=== PATIENT | male | born 1990 | race Caucasian/White ===

== ENCOUNTER 2024-11-30 18:38 | Emergency (ER) | payer OTHER, SELFPAY ==
--- OUTSIDE RECORDS SUMMARY | 2024-11-30 18:44 | XMS_ITS | Clinical Summary ---
Author Organization [facility] Address [address] [place] [address] Phone Care Team Providers Care Photo Checker Name Role Phone Terri Paez NP Primary Care Provider [phone] Medications FLUoxetine (PROzac) 20 mg capsuleIndicati ons:Severe episode of recurrent major depressive disorder, without psychotic features (HCC) Take 1 capsule (20 mg total) by mouth 1 (one) time each day. 30 capsule 1 Active Additional Information Patient not taking.Reported on 06/14/2024 Active Problems Problem Noted Date Diagnosed Date Severe episode of recurrent major depressive disorder, without psychotic features 01/08/2024 Assessment & Plan (01/09/2024 6:23 AM CDT): Psychological condition is worsening. Regular aerobic exercise. Start fluoxetine 20 mg daily Psychological condition will be reassessed in 4 weeks. [facility] in [place] and psychiatric services available, and he agrees that he will go there to see if he can qualify for an evaluation/ help. Low back pain 11/17/2019 Family History Medical History Relation Comments Cancer Father Heart disease Father Hypertension Father Arthritis Mother Osteoarthritis Mother Stroke Mother Relation Status Comments Father Alive Mother Alive Social History Tobacco Use Types Packs/Day Years Used Date Smoking Tobacco: Never Smokeless Tobacco: Current Comments:Pt currently dips u ses 1 can per day for the past 3 years. Alcohol Use Standard Drinks/Week Comments No 0 (1 standard drink = 0.6 oz pur e alcohol) PHQ-2 Answer Date Recorded PHQ-2 Total Score 4 01/08/2024 Hunger Vital Sign Answer Date Recorded Within the past 12 months, y ou worried that your food would run out before you got the money to buy more. Never true 01/08/20 24 Within the past 12 months, t he food you bought just didn't last and you didn't have money to get more. Never true 01/08/2024 PHQ-9 Answer Date Recorded PHQ-9 Total Score 16 01/08/2024 Interpersonal Safety Answer Date Record ed Safe in Home Yes 03/16/2024 Are you in immediate danger? Not on file Is your partner at the health facility now? Not on file 03/16/2024 Do you want to (or have to) go home with your pa rtner? Not on file 03/16/2024 Do you have someplace safe to go? Not on file 03/16/2024 Have there been threats or d irect abuse of you or your children? No 03/16/2024 When did the abuse occur? Not on file 2023 Do you feel you are still at risk? Not on file 03/16/2024 Are you in contact with your ex-partner or do you share children or custody? Not on file 03/16/2024 Are you afraid your life may be in danger? Not o n file 03/16/2024 Has the violence gotten wors e or is it getting scarier? More often? Not on file 03/16/2024 Has anyone ever choked or tried to choke you? No 03/16/2024 Do you feel you are still at risk for choking? N ot on file 03/16/2024 Are you in contact with ex-p artner who choked or attempted to choke you? or do you share children or custody? Not on file Are you afraid your life may be in danger due to choking? Not on file 03/16/2024 Has the choking gotten worse or is it getting scarier? More often? Not on file 03/16/2024 Has your partner used weapons, alcohol or drugs? Not on file 03/16/2024 Has your partner ever held y ou or your children against your will? Not on file 03/16/2024 Does your partner ever watch you closely, follow you or stalk you? Not on file 03/16/2024 Has your partner ever threat ened to kill you, him/herself or your children? Not on file 03/16/2024 When did the choking or choking attempt occur? N ot on file 03/16/2024 Do you feel you are still at risk for choking? N ot on file 03/16/2024 Safe in Relationship Yes 03/16/2024 Sex and Gender Information Value Date Recorded Sex Assigned at Not on file Legal Sex Male 6:51 PM CDT Gender Identity Not on file Sexual Orientation Not on file Last Filed Vital Signs Vital Sign Reading Time Taken Comments Blood Pressure 137/89 06/14/2024 4:34 PM SIMPLEX PRINTER INSTALLER Pulse 75 06/14/2024 4:34 PM SIMPLEX PRINTER INSTALLER Temperature 37.2 C (98.9 F) 06/14/2024 4:34 PM SIMPLEX PRINTER INSTALLER Respiratory Rate 18 06/14/2024 4:34 PM SIMPLEX PRINTER INSTALLER Oxygen Saturation 95% 06/14/2024 4:34 PM SIMPLEX PRINTER INSTALLER Inhaled Oxygen Concentration - - Weight 74.4 kg (164 lb) 06/14/2024 4:34 PM SIMPLEX PRINTER INSTALLER Height 172.7 cm (5' 8) 06/14/2024 4:34 PM SIMPLEX PRINTER INSTALLER Body Mass Index 24.94 06/14/2024 4:34 PM SIMPLEX PRINTER INSTALLER Plan of Treatment Health Maintenance Due Date Last Done Comments Lipid Panel 1990 Preventative Visit 1990 MMR Vaccines (1 of 1 - Stand denise series) 1991 Varicella Vaccines (1 of 2 - 13+ 2-dose series) 2003 Hepatitis C Screening 2008 DTaP,Tdap,and Td Vaccines (1 - Tdap) 2009 Hepatitis B Vaccines (1 of 3 - 19+ 3-dose series) 2009 COVID-19 Vaccine ( - 2023-2 5 season) 2024 Depression Screening 05/20/2024 Influenza Vaccine (#1) 2024 RSV Vaccine (1 - 1-dose 75+ series) 2065 HIB Vaccines Aged Out No longer eligi ble based on patient's age to complete this topic HPV Vaccines Aged Out No longer eligi ble based on patient's age to complete this topic Hepatitis A Vaccines Aged Out No long er eligible based on patient's age to complete this topic IPV Vaccines Aged Out No longer eligi ble based on patient's age to complete this topic Meningococcal B Vaccine Aged Out No l onger eligible based on patient's age to complete this topic Meningococcal Vaccine Aged Out No dereck zelda eligible based on patient's age to complete this topic Pneumococcal Aged Out No longer eligi ble based on patient's age to complete this topic RSV Aged Out No longer eligi ble based on patient's age to complete this topic Insurance [facility] Proxeon PLUS Care Teams Photo Checker Relationship Specialty Start Date End Date Terri Paez NP [address] [place] [address] [address] [place] [address] PCP - General Family Medicine 01/08/24
--- OUTSIDE RECORDS SUMMARY | 2024-11-30 18:44 | XMS_ITS | Encounter Summary ---
Author Organization [facility] Address [address] [place] [address] Phone Care Team Providers Care Belly Dancer Name Role Phone Terri Paez NP Primary Care Provider [phone] Encounter Details Date Type Department Care Team (Latest Contact Info) Description 07/05/2022 Transcribe Orders [address] [address] Jesus Mcgraw NP [address] [place], [place] [phone] Right hand pain (Primary Dx) Social History Tobacco Use Types Packs/Day Years Used Date Smoking Tobacco: Never Smokeless Tobacco: Never Comments:Pt currently dips u ses 1 can per day for the past 3 years. Alcohol Use Standard Drinks/Week Comments No 0 (1 standard drink = 0.6 oz pur e alcohol) PHQ-2 Answer Date Recorded PHQ-2 Total Score 1 06/21/2022 PHQ-9 Answer Date Recorded PHQ-9 Total Score 1 06/21/2022 Sex and Gender Information Value Date Recorded Sex Assigned at Not on file Legal Sex Male 6:51 PM CDT Gender Identity Not on file Sexual Orientation Not on file COVID-19 Exposure Response Date Recorded In the last 10 days, have yo u been in contact with someone who was confirmed or suspected to have Coronavirus/COVID-19? No / Unsure 07/05/2022 12:37 PM GRAIN MILLER HELPER documented as of this encounter Plan of Treatment Not on file documented as of this encounter Results * X-Ray Hand 3+ Views Right (07/05/2022 12:47 PM GRAIN MILLER HELPER) Anatomical Region Laterality Modality Upper Extremities, Hand Right Digital Radiography 07/05/2022 12:4 5 PM GRAIN MILLER HELPER Impressions 07/05/2022 3:40 PM GRAIN MILLER HELPER 1. No acute osseous abnormality. -Electronically Signed By: Albert Nguyen MD -Electronically Signed On: 07/05/2022 3:40 PM Report Ends Narrative 07/05/2022 3:40 PM GRAIN MILLER HELPER EXAM: XR HAND 3+ VW RIGHT 07/05/2022 12:45 PM HISTORY: Pain in right hand TECHNIQUE: Frontal, lateral and oblique - 3 views of the right hand were obtained. COMPARISON: none FINDINGS: There is no evidence of acute fracture or dislocation. The joint spaces are normal. The alignment is anatomical. No radiopaque foreign bodies. The mineralization is normal. Procedure Note ALBERT Nguyen MD - 07/05/2022 EXAM: XR HAND 3+ VW RIGHT 07/05/2022 12:45 PM HISTORY: Pain in right hand TECHNIQUE: Frontal, lateral and oblique - 3 views of the right hand wereobtained. COMPARISON: none FINDINGS: There is no evidence of acute fracture or dislocation. Thejoint spaces are normal. The alignment is anatomical. No radiopaqueforeign bodies. The mineralization is normal. IMPRESSION: 1. No acute osseous abnormality. -Electronically Signed By: Albert Nguyen MD -Electronically Signed On: 07/05/2022 3:40 PM Report Ends Jesus Mcgraw NP IMG XR PROCEDURES Final Result documented in this encounter Visit Diagnoses Diagnosis Right hand pain- Primary Right hand pain documented in this encounter Additional Health Concerns Infection Onset Date Last Indicated Resolved Time Respiratory Rule-Out 06/14/2024 06/14/2024 025 4:48 PM GRAIN MILLER HELPER documented as of this encounter Care Teams Belly Dancer Relationship Specialty Start Date End Date Terri Paez NP [address] [place] [id number] PCP - General Family Medicine 01/08/24 documented as of this encounter
--- OUTSIDE RECORDS SUMMARY | 2024-11-30 18:44 | XMS_ITS | Continuity of Care Document ---
Author Organization [facility] Address [address] [place] [address] Phone Care Team Providers Care Irrigator Gravity Flow Name Role Phone Kiran Smiley OD Unavailable Unavailable Allergies, Adverse Reactions, Alerts Substance Reaction Status Criticality No Known Drug Allergies Active No I nformation Advance Directives Directive Yes / No Effective Date File Name No Information Encounters Encounter Description Practice Location Reason(s) For Visit Diagnoses Date Provider Providers Copied on Encounter [facility], [address], [place], [place], [id number], [place] tel:[phone] [facility] No Information 5 Baljit Beck. [address] [place], [address], [place]. tel: [phone] [facility], [address], [place], [place], [id number], [place] tel:[phone] [facility] [place] Apr- 3 Baljit Beck. [address] [place], [address], [place]. tel: [phone] Family History Family Member Type Diagnosis Age At Onset No Information Payers Payer name Insurance type Covered alliance party ID Authoriza tion(s) No Information Social History Type Description Quantity Date Captured Comments Sex Male Smoking Status No Information Chief Complaint And Reason For Visit No Information Reason For Referral Reason For Referral No Information History Of Present Illness Encounter Date Complaint History Of Prese nt Illness No Information Functional Status Date Functional Assessmen t No Information Instructions Date Instruction Additional Infor mation No Information Assessments Type Assessment Date No Information Patient Care Teams Name Effective Dates (start - stop) Status Members No Information
--- OUTSIDE RECORDS SUMMARY | 2024-11-30 18:44 | XMS_ITS | Encounter Summary ---
Author Organization [facility] Address [address] [place] [address] Phone Care Team Providers Care Diesel Pile Driver Operator Name Role Phone Aubrie Pope NP Primary Care Provider [phone] Reason for Referral * US Procedures (Emergency) - Closed Specialty Diagnoses / Procedures Referred By Tal gu Referred To Contact Radiology Diagnoses Left groin pain Procedures Ultrasound Groin Aubrie Pope NP [address] [place] [address] Phone: tel: fax: Referral ID Status Reason Start Date Expiration Date Visits Re quested Visits Authorized [id number] Closed 06/21/2022 06/16/2023 1 1 F TECHNICIAN X RAY Reason for Visit * US Procedures (Emergency) - Closed Specialty Diagnoses / Procedures Referred By Tal gu Referred To Contact Radiology Diagnoses Left groin pain Procedures Ultrasound Groin Aubrie Pope NP [address] [place] [address] [address] [place] [address] Phone: tel: fax: Referral ID Status Reason Start Date Expiration Date Visits Re quested Visits Authorized [id number] Closed 06/21/2022 06/16/2023 1 1 Encounter Details Date Type Department Care Team (Latest Contact Info) Description 06/22/2022 2:11 PM CHIEF TECHNICIAN X RAY Hospital Encounter [facility] [address] [place] [address] Left groin pain Social History Tobacco Use Types Packs/Day Years [...] Coronavirus/COVID-19? No / Unsure 07/05/2022 12:37 PM CHIEF TECHNICIAN X RAY documented as of this encounter Plan of Treatment Not on file documented as of this encounter Procedures Procedure Name Priority Date/Time Associated Diagnosis Comments US GROIN STAT 06/22/2022 2:39 PM CHIEF TECHNICIAN X RAY Left groin pain documented in this encounter Results * Ultrasound Groin (06/22/2022 2:39 PM CHIEF TECHNICIAN X RAY) Anatomical Region Laterality Modality Body Ultrasound 06/22/2022 2:30 PM CHIEF TECHNICIAN X RAY Impressions 06/22/2022 2:43 PM CHIEF TECHNICIAN X RAY Mild eventration involving the left inguinal canal without ambar hernia. -Electronically Signed By: Baljit Ye MD -Electronically Signed On: 06/22/2022 2:43 PM Report Ends Narrative 06/22/2022 2:43 PM CHIEF TECHNICIAN X RAY EXAM: US GROIN HISTORY: Left lower quadrant pain . TECHNIQUE: Grayscale images were obtained the left inguinal canal region with and without Valsalva. COMPARISON: None. FINDINGS: There is mild eventration bulging of fat in the left inguinal canal region without ambar hernia. There is no bowel. Procedure Note Baljit Ye MD - 06/22/2022 EXAM: US GROIN HISTORY: Left lower quadrant pain . TECHNIQUE: Grayscale images were obtained the left inguinal canal regionwith and without Valsalva. COMPARISON: None. FINDINGS: There is mild eventration bulging of fat in the left inguinal canal regionwithout ambar hernia. There is no bowel. IMPRESSION: Mild eventration involving the left inguinal canal without ambar hernia. -Electronically Signed By: Baljit Ye MD -Electronically Signed On: 06/22/2022 2:43 PM Report Ends us Aubrie Pope FINISH OPENER IMG US PROCEDURES Final Resul t documented in this encounter Visit Diagnoses Diagnosis Left groin pain documented in this encounter Additional Health Concerns Infection Onset Date Last Indicated Resolved Time Respiratory Rule-Out 06/14/2024 06/14/2024 025 4:48 PM CHIEF TECHNICIAN X RAY documented as of this encounter Care Teams Diesel Pile Driver Operator Relationship Specialty Start Date End Date Aubrie Pope NP [address] [place] [address] PCP - General Nurse Practitioner 06/21/22 01/07/24 documented as of this encounter
--- OUTSIDE RECORDS SUMMARY | 2024-11-30 18:44 | XMS_ITS | Encounter Summary ---
Author Organization [facility] Address [address] [place] [address] Phone Care Team Providers Care Overnight Caregiver Name Role Phone Aubrie Pope NP Primary Care Provider [phone] Encounter Details Date Type Department Care Team (Latest Contact Info) Description 07/05/2022 12:39 PM [facility] Hospital Encounter [address] [address] Right hand pain Social History Tobacco Use Types Packs/Day [...] Coronavirus/COVID-19? No / Unsure 07/05/2022 12:37 PM FREELANCE GRAPHIC DESIGNER documented as of this encounter Plan of Treatment Not on file documented as of this encounter Procedures Procedure Name Priority Date/Time Associated Diagnosis Comments XR HAND 3+ VW RIGHT Routine 07/05/2022 1 2:47 PM FREELANCE GRAPHIC DESIGNER Right hand pain documented in this encounter Results * X-Ray Hand 3+ Views Right (07/05/2022 12:47 PM FREELANCE GRAPHIC DESIGNER) Anatomical Region Laterality Modality Upper Extremities, Hand Right Digital Radiography 07/05/2022 12:4 5 PM FREELANCE GRAPHIC DESIGNER Impressions 07/05/2022 3:40 PM FREELANCE GRAPHIC DESIGNER 1. No acute osseous abnormality. -Electronically Signed By: Albert Nguyen MD -Electronically Signed On: 07/05/2022 3:40 PM Report Ends Narrative 07/05/2022 3:40 PM FREELANCE GRAPHIC DESIGNER EXAM: XR HAND 3+ VW RIGHT 07/05/2022 [...] this encounter Visit Diagnoses Diagnosis Right hand pain documented in this encounter Additional Health Concerns Infection Onset Date Last Indicated Resolved Time Respiratory Rule-Out 06/14/2024 06/14/2024 025 4:48 PM FREELANCE GRAPHIC DESIGNER documented as of this encounter Care Teams Overnight Caregiver Relationship Specialty Start Date End Date Aubrie Pope NP [address] [place] [address] Dr. [address] [place] [address] PCP - General Nurse Practitioner 06/21/22 01/07/24 documented as of this encounter
--- NOTE | 2024-11-30 18:45 | ED_ITS ---
HPI - Skin/Abscess/Foreign Bdy General Chief complaint: Skin/Abscess/Foreign Body Stated complaint: poison sharon Source: patient and RN notes reviewed Mode of arrival: ambulatory Limitations: no limitations History of Present Illness HPI narrative: Patient is a 34-year-old male presents to the [facility] complaints of possible poison sharon. 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 Patient presents with vesicular rash to bilateral arms, hands, and abdomen. States that he has been using calamine lotion. Related Data Home Medications ?Medication ?Instructions ?Recorded ?Confirmed ?Last Taken ?Type fluoxetine 10 mg tablet mg 11/30/24 Unknown History risperidone 0.25 mg tablet mg 11/30/24 Unknown History Allergies Allergy/AdvReac Type Severity Reaction Status Date / Time No Known Allergies Allergy Verified 11/30/24 18:51 Review of Systems Review of Systems: CONSTITUTIONAL: Denies fever, chills, or sweats. EYES: Denies visual changes, redness, or discharge. ENT: Denies otalgia and sore throat CARDIOVASCULAR: Denies chest pain, palpitations, or edema. RESPIRATORY: Denies cough or dyspnea. GASTROINTESTINAL: Denies abdominal pain, nausea, vomiting, or diarrhea. GENITOURINARY: Denies dysuria or hematuria. SKIN: Reports rash and itching. MUSCULOSKELETAL: Denies back pain, joint pain, or myalgia. NEUROLOGIC: Denies headache, numbness, or weakness. Pertinent positives per HPI. PMFSH Comments At the time of my signature, I reviewed and agree with the nursing past medical, surgical, social, and family history. There is no relevant family history pertinent to the patient complaint. Exam Narrative: GENERAL: This is a well-nourished, well-developed patient, in no apparent distress. HEAD: normocephalic, atraumatic. EYES: Sclera clear/white. Vision is grossly intact. EARS: External ears normal. Hearing grossly intact. NOSE: External nose normal with no obvious nasal discharge, nares without redness, no rhinorrhea. THROAT: Mucous membranes moist, posterior pharynx clear. NECK: Neck supple, non-tender without lymphadenopathy, masses or thyromegaly. CARDIOVASCULAR: Regular rate and rhythm without murmurs, gallops, or rubs. RESPIRATORY: Clear to auscultation. Breath sounds equal bilaterally. No wheezes, rales, or rhonchi. GASTROINTESTINAL: Abdomen soft, non-tender, nondistended. Bowel sounds are active. No hepato-splenomegaly, or palpable masses. No guarding. SKIN: Vesicular rash with blisters to bilateral arms, hands, and abdomen. Rash is consistent with poison sharon. NEURO: awake, alert, and oriented to person, place and time. There were no obvious focal neurologic abnormalities. Course Course Level of Care: Express Care Visit Vital Signs Vital signs: Vital Signs Temperature 98.1 F 11/30/24 18:53 Pulse Rate 72 11/30/24 18:53 Respiratory Rate 18 11/30/24 18:53 Blood Pressure 118/73 11/30/24 18:53 Pulse Oximetry 99 11/30/24 18:53 Oxygen Delivery Room Air 11/30/24 18:53 Temperature 98.1 F 11/30/24 18:53 Pulse Rate 72 11/30/24 18:53 Respiratory Rate 18 11/30/24 18:53 Blood Pressure 118/73 11/30/24 18:53 Pulse Oximetry 99 11/30/24 18:53 Oxygen Delivery Room Air 11/30/24 18:53 Reviewed MDM - Skin/Abscess/Foreign Bdy MDM Narrative Medical decision making narrative: Prevention is always better than treatment. Learn to identify poison sharon, oak, and sumac and avoid it. Wear long sleeves, long pants, shoes, and socks. If you touched the plant, try to keep your hands away from your eyes, mouth, and face. Wash the skin thoroughly with soap and cool water as soon as possible. Scrub under the fingernails with a brush to prevent spreading of the resin to other parts of the body by touching or scratching. Remember to wash any clothing with soap and hot water as the resin can persist for many months and cause further dermatitis. Use calamine lotion on the affect area. IF symptoms get worse to follow up with your primary care provider or seek ER visit if you developing difficulty breathing, weakness, dizziness. Differential Diagnosis Differential diagnosis: Likely abscess of skin or subcutaneous tissue, cellulitis and contact dermatitis Critical Care Time Critical Care Time Critical Care Time: No Discharge Plan Discharge Clinical Impression: Contact dermatitis due to poison sharon Patient Disposition: Home Condition: Stable Instructions: Poison Sharon (ED) Additional Instructions: Prevention is always better than treatment. Learn to identify poison sharon, oak, and sumac and avoid it. Wear long sleeves, long pants, shoes, and socks. If you touched the plant, try to keep your hands away from your eyes, mouth, and face. Wash the skin thoroughly with soap and cool water as soon as possible. Scrub under the fingernails with a brush to prevent spreading of the resin to other parts of the body by touching or scratching. Remember to wash any clothing with soap and hot water as the resin can persist for many months and cause further dermatitis. Use calamine lotion on the affect area. IF symptoms get worse to follow up with your primary care provider or seek ER visit if you developing difficulty breathing, weakness, dizziness. Patient Language: [place] Citizen Prescriptions: New prednisone 10 mg tablet 10 mg PO DIRECTED Qty: 35 0RF Rx Instructions: Take 4 tabs on days 1 through 5, then take 2 tabs on days 6 through 10, then take 1 tab on days 11 through 15 Calamine Medicated 1-8 % lotion 1 applic topical TID PRN (Reason: itching) Qty: 177 0RF No Action fluoxetine 10 mg tablet risperidone 0.25 mg tablet Follow-up/Referrals: UNKNOWN,DOCTOR [Primary Care Provider] - Time of Disposition: 19:03
--- OUTSIDE RECORDS SUMMARY | 2024-11-30 18:45 | XMS_ITS | Patient Health Record ---
Author Organization [facility] Address [address] [place] [address] Care Team Providers Care [employer] Technician Name Role Phone Tristen Eaton Unavailable Unavailable [facility] Unavailable [phone] Yves Sawyer Unavailable [phone] Allergies No Known Allergies Results Component Value Reference Range Notes [id number] Reviewed date:05/15/2024 12:49:24 PM Interpretation: Performing Lab:[facility] [address] [place] [address] Ln [address], [place], Phone - [phone], Director - Pavan Notes/Report: TSH 1.330 0.450-4.500 uIU/mL CBC with Diff, Platelet, NLR -[id number] Reviewed date:05/15/2024 12:49:24 PM Interpretation: Performing Lab:[facility] [address], [place], Phone - [phone], Director - Pavan Notes/Report: WBC 5.1 3.4-10.8 x10E3/uL RBC 5.53 4.14-5.80 x10E6/uL Hemoglobin 16.7 13.0-17.7 g/dL Hematocrit 50.6 37.5-51.0 % MCV 92 79-97 fL MCH 30.2 26.6-33.0 pg MCHC 33.0 31.5-35.7 g/dL RDW 12.6 11.6-15.4 % Platelets 277 150-450 x10E3/uL Neutrophils 64 Not Estab. % Lymphs 27 Not Estab. % Monocytes 6 Not Estab. % Eos 2 Not Estab. % Basos 1 Not Estab. % Neutrophils (Absolute) 3.2 1.4-7.0 x10E3/uL Lymphs (Absolute) 1.4 0.7-3.1 x10E3/uL Neut/Lymph Ratio 2.3 0.0-2.9 ratio Published COVID-19 studies suggest: Low likelihood of severe COVID-19 disease progression 0.0-2.9 High likelihood of severe COVID-19 disease progression >4.9 Monocytes(Absolute) 0.3 0.1-0.9 x10E3/uL Eos (Absolute) 0.1 0.0-0.4 x10E3/uL Baso (Absolute) 0.1 0.0-0.2 x10E3/uL Immature Granulocytes 0 Not Estab. % Immature Grans (Abs) 0.0 0.0-0.1 x10E3/uL IH Urinalysis Reviewed date:05/27/2024 07:29:05 AM Interpretation: Performing Lab: Notes/Report: Leukocytes - 0 - 500 Cristin/uL Nitrite - neg - pos Urobilinogen - 0.2 - 8 mg/dL Protein - 0 - 300 mg/dL pH 6.0 5.0 - 9.0 pH Blood 1+ 0 - 200 Hernan/uL SG 1.015 1.000 - 1.030 SG Ketones - 0 - 80 mg/d: Bilirubin - Glucose - 0 - 1000 mg/dL HRT Male Pre Pellet-[id number] Reviewed date:05/26/2024 12:08:05 PM Interpretation: Performing Lab:[facility], [address] [place] [address] [address], [place], Phone - [phone], Director - Pavan Notes/Report: Test(s) [id number], Total, LC/MS; [id number]- Estradiol, Sensitive was developed and its performance characteristics determined by [facility]. It has not been cleared or approved by the Food and Drug Administration. Glucose 84 70-99 mg/dL BUN 12 6-20 mg/dL Creatinine 1.17 0.76-1.27 mg/dL eGFR 84 >59 mL/min/1.73 BUN/Creatinine Ratio 10 9-20 Sodium 140 134-144 mmol/L Potassium 4.7 3.5-5.2 mmol/L Chloride 101 96-106 mmol/L Carbon Dioxide, Total 26 20-29 mmol/L Calcium 9.7 8.7-10.2 mg/dL Protein, Total 7.4 6.0-8.5 g/dL Albumin 4.9 4.1-5.1 g/dL Globulin, Total 2.5 1.5-4.5 g/dL Bilirubin, Total 1.0 0.0-1.2 mg/dL Alkaline Phosphatase 82 44-121 IU/L AST (SGOT) 24 0-40 IU/L ALT (SGPT) 23 0-44 IU/L Vitamin B12 553 939-1566 pg/mL Vitamin D, 25-Hydroxy 20.9 30.0-100.0 ng/mL Vitamin D deficiency has been defined by the [place] of Medicine and an Endocrine Society practice guideline as a level of serum 25-OH vitamin D less than 20 ng/mL (1,2). The Endocrine Society went on to further define vitamin D insufficiency as a level between 21 and 29 ng/mL (2). 1. IOM ([place] of Medicine). 2010. Dietary reference intakes for calcium and D. [place]: The National AcademKickboard Press. 2. Lidia MF, Bobby FIGUEROA, Yarely STARK, et al. Evaluation, treatment, and prevention of vitamin D deficiency: an Endocrine Society clinical practice guideline. JCEM. 2010; 96(7):1911-30. TSH 1.510 0.450-4.500 uIU/mL Triiodothyronine (T3), Free 3.3 2.0-4.4 pg/mL T4,Free(Direct) 1.33 0.82-1.77 ng/dL Thyroid Peroxidase (TPO) Ab 11 0-34 IU/mL Prostate Specific Ag 0.6 0.0-4.0 ng/mL Nixon ECLIA methodology. . According to the [place] [employer], Serum PSA should decrease and remain at undetectable levels after radical prostatectomy. The AUA defines biochemical recurrence as an initial PSA value 0.2 ng/mL or greater followed by a subsequent confirmatory PSA value 0.2 ng/mL or greater. Values obtained with different assay methods or kits cannot be used interchangeably. Results cannot be interpreted as absolute evidence of the presence or absence of malignant disease. Testosterone, Total, LC/MS 331.9 264.0-916.0 ng /dL [facility] method is currently certified by the CDC Hormone Standardization Program (HoSt). Adult male reference interval is based on a population of healthy nonobese males (BMI <30) between 19 and 39 years old. cristo Rahman.al. JCEM 2017,102;1512-3341. PMID: 97865302. Testost., Free, Calc 82.6 42.3-190.0 pg/mL LH 6.8 1.7-8.6 mIU/mL Prolactin 7.6 3.9-22.7 ng/mL Sex Horm Binding Glob, Serum 17.5 16.5-55.9 nm ol/L Estradiol, Sensitive 17.5 8.0-35.0 pg/mL Metho dology: Liquid chromatography tandem mass spectrometry(LC/MS/MS) WBC 5.7 3.4-10.8 x10E3/uL RBC 5.34 4.14-5.80 x10E6/uL Hemoglobin 16.1 13.0-17.7 g/dL Hematocrit 48.4 37.5-51.0 % MCV 91 79-97 fL MCH 30.1 26.6-33.0 pg MCHC 33.3 31.5-35.7 g/dL RDW 12.9 11.6-15.4 % Platelets 290 150-450 x10E3/uL Neutrophils 67 Not Estab. % Lymphs 24 Not Estab. % Monocytes 6 Not Estab. % Eos 2 Not Estab. % Basos 1 Not Estab. % Neutrophils (Absolute) 3.8 1.4-7.0 x10E3/uL Lymphs (Absolute) 1.3 0.7-3.1 x10E3/uL Monocytes(Absolute) 0.4 0.1-0.9 x10E3/uL Eos (Absolute) 0.1 0.0-0.4 x10E3/uL Baso (Absolute) 0.1 0.0-0.2 x10E3/uL Immature Granulocytes 0 Not Estab. % Immature Grans (Abs) 0.0 0.0-0.1 x10E3/uL Reason For Referral No Information Medications Medication SIG (Take, Route, Frequency, Duration) Notes Start Date End Date Status Terbinafine HCl 250 MG 1 tablet Orally O nce a day; Duration: 90 days 10/30/2022 Not-Takin g Testosterone Not-William ing Social History Tobacco Use: Social History Observation Description Date Details (start date - stop date) Never Smoker NA - NA Tobacco Use/Smoking Question Answer Notes Tobacco use: nonsmoker Problems Problem Type SNOMED Code ICD Code Onset Dates Problem Status W/U Status Risk Notes Problem Vitamin D deficiency (61455495) Vitamin D deficiency, unspecified (E55.9) Active confirmed Problem Fatigue (55726128) Other fatigue (R53.83) Active confirmed Problem Benign prostatic hypertrophy without outflow obstruction (814442197) Benign prostatic hyperplasia without lower urinary tract symptoms (N40.0) Active confirmed Problem Onychomycosis (557399508) Onychomycosis (B35.1) Active confirmed Vital Signs Heart Rate 73 /min 11/19/2024 Temperature 97.0 degrees Fahrenheit 11/19/2024 Respiratory Rate 19 /min 11/19/2024 Oximetry 98 % 11/19/2024 Blood pressure diastolic 66 mm Hg 11/19/2024 Weight-kg 68.95 kg 11/19/2024 Height 68 in 11/19/2024 Blood pressure systolic 104 mm Hg 11/19/2024 Weight 152 lbs 11/19/2024 BMI 23.11 kg/m2 11/19/2024 Encounters Encounter Location Date Provider Diagnosis [address] [address] 01/23/2024 [facility] Pre-employment drug screening Z02.[address] [address] 05/14/2024 [facility] Annual physical exam Z00.00 and Cold hands R20.[address] [address] 05/21/2024 [facility] Dysuria R30.0 and Encounter for other administrative examinations Z02.[address] [address] 05/21/2024 [facility] Fatigue, unspecified type R53.83 ; Elevated bilirubin R17 and Vitamin D deficiency, unspecified E55.[address] [address] 11/19/2024 Yves Sawyer Viral upper respirat ory tract infection J06.9 and Fatigue, unspecified type R53.83 Assessments Encounter Date Diagnosis (ICD Code) Assessment Notes Treatment Notes Treatment Clinical Notes Section Notes 01/23/2024 Pre-employment drug screening (ICD-10 - Z02.1) 05/14/2024 Annual physical exam (ICD-10 - Z00.00) 05/14/2024 Cold hands (ICD-10 - R20.9) 05/21/2024 Dysuria (ICD-10 - R30.0) 05/21/2024 Fatigue, unspecified type (ICD-10 - R53.83) 05/21/2024 Elevated bilirubin (ICD-10 - R17) 11/19/2024 Viral upper respiratory tract infection (ICD-10 - J06.9) Discussed viral nature of condition and that antibiotics would not be helpful at this time unless we found a concurrent bacterial infeciton. Recommend: Increase fluids, rest, use humidifier, and over the counter cold preparations as appropriate. You may take Tylenol or Ibuprofen as per directions for fever or headache. Follow-up in 3-5 days if symptoms are worsening or new symptoms develop along the way it is not common for these symptoms to last longer than 10 days. Practice good hygeine and avoid the general public while acutely symptomatic. ER warnings for any shortness of breath. If not improved by Saturday, will cover with abx 05/21/2024 Encounter for other administrative examinations (ICD-10 - Z02.89) 05/21/2024 Vitamin D deficiency, unspecified (ICD-10 - E55.9) 11/19/2024 Fatigue, unspecified type (ICD-10 - R53.83) 05/21/2024 Other various forms of replacement were rievewed and patient will elect therapy that most matches their specific needs. More than 45 minutes were spent with patient largely for education We discussed a comprehensive plan to help with fatigue symptoms we reviewed the risk vs benefit from HRT and that this is elective therapy that is often used off-label to treat symptoms. It is never recommend that some use hormones with absent symptoms. Risk include but are not limited to: TESTOSTERONE blood abnormalities (elevation in hemoglobin and/or hematocrit) Blood pressure elevation Edema Mood disturbance Male pattern baldness Increased facial hair, acne Certain types of cancer ESTRADIOL Clotting Certain types of cancer Exacerbation of seizure disorder Headaches *if you have any of these you should not start until cleared by the appropriate specialist* Plan Of Treatment No Information Insurance Providers Payer Name Payer Address Payer Phone Subscriber Number Group Number Insured Name Patient Relationship to Insured Coverage Start Date [facility]age End Date [facility] [address] [place] [address] [id number] Dhruv Magaña Self - patient is the insured Medications Administered Medication Instructions Date of Administration Dosage Notes dexAMETHasone Sodium Phosphate 11/19/2024 Medical (General) History Medical History History ICD Code seasonal allergies depression
[2024-11-30 18:53] VITALS: BP 118/73; PULSE 72; RESP 18; TEMP 36.7; O2SAT 99
== END 2024-11-30 19:08 | disposition home or self-care (01) ==
PROVIDERS: Emergency Provider Nurse Practitioner
DX: L23.7 Allergic contact dermatitis due to plants, except food (principal); F41.9 Anxiety disorder, unspecified
CPT/HCPCS: 99203; G0463